=== PATIENT | female | born 1960 | race Caucasian/White ===

== ENCOUNTER 2018-08-03 19:01 | Observation (INO) | payer BC ==
[2018-08-03] MEDS ORDERED: SODIUM CHLORIDE 0.9% 1,000 ML IV ONE (20:09)
[2018-08-03] MEDS ORDERED: ACETAMINOPHEN TAB 500 MG TAB PO STA (20:09)
[2018-08-03 20:11] LABS: Basophils % (A) 1 %; Eosinophils # (A) 0.2 k/uL (0-0.7); Eosinophils % (A) 3 %; HCT 45.7 % (34.0-46.0); HGB 15.5 gm/dL (11.4-16.0); Lymphocytes # (A) 1.5 k/uL (1.0-4.8); Lymphocytes % (A) 30 %; MCH 31.1 pg (25.0-35.0); MCV 91.3 fL (80.0-100.0); Mean Platelet Volume 7.3; Monocytes # (A) 0.3 k/uL (0-1.0); Monocytes % (A) 6 %; Neutrophils # (A) 2.9 k/uL (1.3-7.7); Neutrophils % (A) 58 %; Platelet Count 235 k/uL (150-450); RDW 12.6 % (11.5-15.5)
[2018-08-03] MEDS ORDERED: SODIUM CHLORIDE 0.9% 1,000 ML IV SCH (20:15)
[2018-08-03 20:22] LABS: ALT 23 U/L (9-52); AST 26 U/L (14-36); Albumin 4.8 g/dL (3.5-5.0); Alkaline Phosphatase 65 U/L (38-126); Anion Gap 9 mmol/L; Blood Urea Nitrogen 19 mg/dL (7-17); Calcium 10.1 mg/dL (8.4-10.2); Carbon Dioxide 26 mmol/L (22-30); Chloride 105 mmol/L (98-107); Glucose 87 mg/dL (74-99); INR 0.9 (<1.2); Partial Thromboplastin Time 23.1 sec (22.0-30.0); Potassium 4.5 mmol/L (3.5-5.1); Prothrombin Time 9.7 sec (9.0-12.0); Sodium 140 mmol/L (137-145); Total Bilirubin 0.4 mg/dL (0.2-1.3)
[2018-08-03] MEDS ORDERED: LABETALOL SYRINGE 5 MG/ML IVP STA (20:27)
[2018-08-03 20:29] LABS: Creatine Kinase 62 U/L (30-135)
--- NOTE | 2018-08-03 20:30 | ED ---
Chest Pain HPI - General Source: patient, RN notes reviewed, old records reviewed Mode of arrival: ambulatory Limitations: no limitations <Niurka Malik - Last Filed: 08/03/18 22:33> <Gaby Mc - Last Filed: 08/05/18 21:20> - General Chief Complaint: Chest Pain Stated Complaint: CHEST PAIN, ABNORMAL EKG, DIZZINESS Time Seen by Provider: 08/03/18 19:53 - History of Present Illness Initial Comments: Patient is a 58-year-old female presents to ED with CC of chest pain for the past 2 days. Patient reports she woke up yesterday diaphoretic and feeling dizzy. She also has been complaining of increased headaches for the past few weeks. Patient states her headache seems to hurt all the way to her jaw. She states that today having a dull pressure. Joints were PCP who sent her here for EKG abnormalities and further evaluation. She is never seen a tie layer. She is a smoker. She rubs emergency department hypertensive 208/ 110. (Niurka Malik) - Related Data Home Medications Medication Instructions Recorded Confirmed Albuterol Inhaler [Ventolin Hfa 2 puff INHALATION RT-Q6H PRN 08/03/18 08/03/18 Inhaler] Buprenorphine [Buprenorphine 20 1 patch TRANSDERM Q4D 08/03/18 08/03/18 MCG/HR] Multivitamins, Thera [Multivitamin 1 tab PO DAILY 08/03/18 08/03/18 (formulary)] Pregabalin [Lyrica] 75 mg PO TID 08/03/18 08/03/18 Ranitidine HCl 150 mg PO TID 08/03/18 08/03/18 Previous Rx's Medication Instructions Recorded predniSONE [Deltasone] 40 mg PO DAILY 5 Days #10 tablet 08/03/18 Rosuvastatin Calcium [Crestor] 40 mg PO DAILY #90 tab 08/04/18 amLODIPine [Norvasc] 5 mg PO DAILY #10 tab 08/04/18 Allergies Allergy/AdvReac Type Severity Reaction Status Date / Time adhesive Allergy Rash/Hives Verified 08/03/18 20:28 Review of Systems ROS Other: All systems not noted in ROS Statement are negative. <Niurka Malik - Last Filed: 08/03/18 22:33> ROS Other: All systems not noted in ROS Statement are negative. <Gaby Mc P - Last Filed: 08/05/18 21:20> ROS Statement: Those systems with pertinent positive or pertinent negative responses have been documented in the HPI. EKG Findings - EKG Comments: EKG Findings:: EKG performed at 1947 shows normal sinus rhythm nonspecific ST T abnormalities. Abnormal EKG noted. Ventricular rate is 71 bpm. Intervals 118 seconds. Stressors and 72 ms. QT QTC 370/410 ms. <Niurka Malik - Last Filed: 08/03/18 22:33> Past Medical History Past Medical History: No Reported History History of Any Multi-Drug Resistant Organisms: None Reported Additional Past Surgical History / Comment(s): right total hip replacement. ORIF right femur. Past Psychological History: No Psychological Hx Reported Smoking Status: Current every day smoker Past Alcohol Use History: None Reported Past Drug Use History: None Reported <Niurka Malik - Last Filed: 08/03/18 22:33> General Exam Limitations: no limitations <Niurka Malik - Last Filed: 08/03/18 22:33> <Gaby Mc P - Last Filed: 08/05/18 21:20> - General Exam Comments Initial Comments: 50-year-old female. Alert and oriented. Patient appears in no significant distress. (Niurka Malik) Vital Signs 08/03/18 08/03/18 08/03/18 19:34 21:21 21:30 Temperature 98.4 F Pulse Rate 79 64 63 Respiratory 20 18 16 Rate Blood Pressure 205/91 191/105 175/105 O2 Sat by Pulse 99 Oximetry 08/03/18 08/03/18 08/03/18 22:00 22:05 22:30 Temperature Pulse Rate 56 L 58 L Respiratory 10 L 18 13 Rate Blood Pressure 192/104 144/100 151/100 O2 Sat by Pulse 99 98 Oximetry 08/03/18 08/03/18 08/04/18 23:00 23:30 00:00 Temperature Pulse Rate 61 56 L 58 L Respiratory 15 16 16 Rate Blood Pressure 158/87 151/86 157/89 O2 Sat by Pulse Oximetry 08/04/18 08/04/18 08/04/18 00:30 01:00 03:50 Temperature Pulse Rate 52 L 51 L 52 L Respiratory 16 12 17 Rate Blood Pressure 150/88 125/71 113/65 O2 Sat by Pulse Oximetry 08/04/18 08/04/18 08/04/18 07:00 08:00 09:00 Temperature Pulse Rate 56 L 53 L 57 L Respiratory 18 18 18 Rate Blood Pressure 117/75 112/77 101/65 O2 Sat by Pulse Oximetry Chest Pain MDM <Niurka Malik - Last Filed: 08/03/18 22:33> <Gaby Mc - Last Filed: 08/05/18 21:20> - MDM Is a 58-year-old female presents emergency department today with chief complaint of chest pain for the past 2 days as well as a headache. She is a smoker. Charts emergency department with elevated blood pressure of 208/110. Patient was given 20 mg of labetalol and Tylenol for headache. She reports that she still continues to have a dull chest pain. Patient CT of her brain was reviewed negative for any acute grand mal day. She is no neurological deficits. Patient EKG was reviewed. And shows no significant change at this time. An initial troponin is negative. I discussed this time with respect to the family heart disease, being a smoker and hypertensive urgency would like to give the Patient for further evaluation and cardiology consult. Patient agrees. Custody case with Dr. Mc who discussed the case with sounds physician. (Niurka Malik) I personally saw and examined the patient. I reviewed and agree with the mid- level provider findings including all diagnostic interpretations and treatment plans as written. Patient care was discussed with the admitting physician the patient was admitted for hypertensive urgency with chest pain. (Gaby Mc) Disposition Is patient prescribed a controlled substance at d/c from ED?: No Time of Disposition: 22:37 <Niurka Malik - Last Filed: 08/03/18 22:33> <Gaby Mc - Last Filed: 08/05/18 21:20> Clinical Impression: Chest pain, Hypertensive urgency Disposition: ADMITTED IP TO THIS HOSP Condition: Stable
[2018-08-03 20:42] LABS: Troponin I <0.012 ng/mL (0.000-0.034)
--- NOTE | 2018-08-03 21:13 | CT ---
EXAMINATION TYPE: CT brain wo con DATE OF EXAM: 08/03/2018 COMPARISON: None HISTORY: headache, abnormal ekg, dizziness CT DLP: 1115.4 mGycm Automated exposure control for dose reduction was used. FINDINGS: Ventricles and sulci appear normal. There is no mass effect nor midline shift. There is 8 mm hypodens e focus in the white matter insula right temporal lobe consistent with old lacunar infarct. The natalie rium is intact. IMPRESSION: NO ACUTE INTRACRANIAL ABNORMALITY.
--- NOTE | 2018-08-03 21:14 | XR ---
EXAMINATION TYPE: XR chest 2V DATE OF EXAM: 08/03/2018 COMPARISON: NONE HISTORY: Chest pain TECHNIQUE: Frontal and lateral views of the chest are obtained. FINDINGS: Heart and mediastinum are normal. Lungs are clear. Diaphragm is normal. Bony thorax appear s normal. There are chest leads. IMPRESSION: Normal chest.
[2018-08-03] MEDS ORDERED: ASPIRIN 81 MG PO STA (22:37)
[2018-08-03] MEDS ORDERED: NITROGLYCERIN SL TABS 0.4 MG TAB SUBLINGUAL PRN (22:37)
[2018-08-03] MEDS ORDERED: ALBUTEROL NEBULIZED 2.5 MG/3 ML INHALATION PRN (22:39)
[2018-08-03] MEDS ORDERED: BUPRENORPHINE TRANSDERM SCH (22:45)
[2018-08-03] MEDS ORDERED: PREGABALIN 75 MG CAP PO STA ×3 (23:18→23:21)
[2018-08-04 03:35] LABS: Creatine Kinase 51 U/L (30-135)
[2018-08-04] MEDS ORDERED: NALOXONE 0.4 MG/ML 1 ML VIAL IV PRN (03:37)
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
[2018-08-04 03:49] LABS: Troponin I <0.012 ng/mL (0.000-0.034)
[2018-08-04 04:00] LABS: Cholesterol 324 mg/dL (<200); HDL Cholesterol 85 mg/dL (40-60); LDL Cholesterol,Calculated 183 mg/dL (0-99); Triglycerides 281 mg/dL (<150)
[2018-08-04] MEDS ORDERED: ASPIRIN 325 MG TAB PO SCH (09:00)
[2018-08-04] MEDS ORDERED: amLODIPine 10 MG TAB PO SCH (09:00)
[2018-08-04] MEDS ORDERED: FAMOTIDINE 20 MG TAB PO SCH (09:00)
[2018-08-04] MEDS ORDERED: MELOXICAM 7.5 MG TAB PO SCH (09:00)
[2018-08-04] MEDS ORDERED: ENOXAPARIN 40 MG/0.4 ML SYRINGE SQ SCH (09:00)
[2018-08-04] MEDS ORDERED: LISINOPRIL 10 MG TAB PO SCH (09:00)
[2018-08-04 09:25] VITALS: RESP 18
[2018-08-04] MEDS: PREGABALIN 75 MG CAP PO SCH ×2 (09:44→12:18)
[2018-08-04] MEDS ORDERED: DOBUTamine DRIP for NUC MED 500 MG in DEXTROSE/WATER 1 250ML.BAG IV ONE (09:49)
--- NOTE | 2018-08-04 11:51 | P.PN ---
Subjective Patient is 58-year-old female with past medical history of chronic hip pain and osteoarthritis who presented to emergency department with 1 day of occipital headache and nausea and some dizziness. She was found to have blood pressure in 200 range. She denied any chest pain, shortness of breath abdominal pain. She does not carry any diagnosis of hypertension. She states that over the last week she was very very stressed out due to some issues at work and she did not sleep much for the last 3 days prior to the admission. Next and on admission she was treated with IV labetalol and started on oral antihypertensive medications. CT of the head was unremarkable chest x-ray was unremarkable EKG without any acute changes and troponin negative. Electrolytes and creatinine and creatinine normal. This morning her blood pressure is 138/83 and she states that all her symptoms have resolved no more headache or any nausea or any discomfort. She feeling at baseline and much improved. REVIEW OF SYSTEMS: CONSTITUTIONAL: No fever or chills HEENT: No changes in vision or voice CARDIOVASCULAR: no chest pain or abnormal heart beats, or any swelling in ankles or feet. RESPIRATORY: No wheezing or coughing. GASTROINTESTINAL: No abdominal pain, no nausea no vomiting no constipation or diarrhea GENITOURINARY: no any urinary urgency, frequency or burning, and there has been no blood in her urine. no flank pain. MUSCULOSKELETAL: She notes full range of motion of all her joints without pain or swelling. NEUROLOGICAL: , no headache. no vision changes, or fainting. No numbness or tingling. Objective - Vital Signs Vital signs: Vital Signs Temp 98.4 F 08/03/18 19:34 Pulse 57 L 08/04/18 09:00 Resp 18 08/04/18 09:00 BP 101/65 08/04/18 09:00 Pulse Ox 98 08/03/18 22:05 Intake & Output 08/03/18 08/04/18 08/04/18 18:59 06:59 18:59 Weight 54.431 kg - Exam Vital Signs: I have reviewed the vital signs. GENERAL: Well-nourished, Well-developed , no apparent distress, cooperative Eyes: PERRL, extraoculry movements intact, clear conjunctiva Head: : Atraumatic external nose and ears, oropharyngeal mucosa is moist without lesions or exudates Neck: Symmetric, trachea midline, No thyromegaly, no masses or neck vain pulsation, no neck rigidity CVS: +S1/S2, No murmurs or gallops. Peripheral pulses 2+ and equal in all extremities. RESP: Unlabored respiratory effort. Clear to auscultation bilaterally. Abdomen: Bowel sounds present in all 4 quadrants, Soft to palpation, Nontender/ Nondistended, No hepatosplenomegaly, no hernias or masses, no CVA tnderness Musculoskeletal: Extremities w/o deformity, No cyanosis or clubbing, no joint swelling Skin: Warm, Dry. No rashes or lesions Neuro: truer pinion and wheel II-XII grossly intact, motor strenght 5/5 i upper and lower extremities, no clonus, patellar DTRs 2+ and sympetrical Psych: Awake, Alert, & Oriented (AAO) x3 Appropriate mood and affect - Labs CBC & Chem 7: 08/03/18 19:52 08/03/18 19:52 Labs: Abnormal Lab Results - Last 24 Hours (Table) 08/03/18 08/03/18 Range/Units 19:52 19:52 BUN 19 H (7-17) mg/dL Triglycerides 281 H (<150) mg/dL Cholesterol 324 H (<200) mg/dL LDL Cholesterol, Calc 183 H (0-99) mg/dL HDL Cholesterol 85 H (40-60) mg/dL Assessment and Plan Plan: 1. Hypertensive urgency Patient might have underlying hypertension and then exacerbated by stress and insomnia She responded well to a blood pressure medications and I believe that goal for her blood pressure should be in the range of 140-160 for 24 hours and then she can slowly start lowering get over the next one week Given that her blood pressure now is in 120-140 range we discussed potential treatments. She is willing to accept prescription for amlodipine and to monitor her blood pressures at home she has a blood pressure monitor and if the blood pressure remains elevated above 140s to start her amlodipine. She is also we'll have a quick follow-up was discharged with her primary care physician Also cardiology evaluated the patient and recommended proceeding with echocardiogram and stress test and once we obtain the results of those will further discuss with patient about plans for discharge and further management.
[2018-08-04] MEDS ORDERED: MULTIVITAMINS, THERA 1 EACH TAB PO SCH (12:00)
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
[2018-08-04 13:51] VITALS: BP 164/98; PULSE 63; TEMP 98.7
--- NOTE | 2018-08-04 14:08 | ECHOF ---
Referral Reason:cp MEASUREMENTS -------- HEIGHT: 160.0 cm WEIGHT: 58.5 kg BP: 101/65 RVIDd: 2.4 cm (< 3.3) IVSd: 1.1 cm (0.6 - 1.1) LVIDd: 4.4 cm (3.9 - 5.3) LVPWd: 1.2 cm (0.6 - 1.1) IVSs: 1.4 cm LVIDs: 2.7 cm LVPWs: 1.4 cm Ao Diam: 3.4 cm (2.0 - 3.7) AV Cusp: 1.2 cm (1.5 - 2.6) LA Diam: 4.0 cm (2.7 - 3.8) MV EXCURSION: 13.883 mm (> 18.000) MV EF SLOPE: 80 mm/s (70 - 150) EPSS: 0.3 cm MV E Jacob: 0.80 m/s MV DecT: 214 ms MV A Jacob: 0.86 m/s MV E/A Ratio: 0.94 RAP: 5.00 mmHg RVSP: 12.42 mmHg FINDINGS -------- Sinus rhythm. This was a technically good study. LV size, wall thickness and systolic function are normal, with an EF greater than 55%. The left rhiannon tricular size is normal. The right ventricle is normal in size. The left atrial size is normal. The right atrial size is normal. The aortic valve is trileaflet, and appears structurally normal. No aortic stenosis or regurgitation. Mild mitral annular calcification present. Mild mitral regurgitation is present. Mild tricuspid regurgitation present. There is no evidence of pulmonary hypertension. The right v entricular systolic pressure, as measured by Doppler, is 12.42mmHg. There is no pulmonic regurgitation present. The aortic root size is normal. There is no pericardial effusion. CONCLUSIONS -------- 1. LV size, wall thickness and systolic function are normal, with an EF greater than 55%. 2. The left ventricular size is normal. 3. The right ventricle is normal in size. 4. The left atrial size is normal. 5. The right atrial size is normal. 6. The aortic valve is trileaflet, and appears structurally normal. No aortic stenosis or regurgitati on. 7. Mild mitral annular calcification present. 8. Mild mitral regurgitation is present. 9. Mild tricuspid regurgitation present. 10. There is no evidence of pulmonary hypertension. 11. The right ventricular systolic pressure, as measured by Doppler, is 12.42mmHg. 12. There is no pulmonic regurgitation present. 13. The aortic root size is normal. 14. There is no pericardial effusion. CONTINUOUS PILLOWCASE CUTTER: Bre Hill RDCS
[2018-08-04 14:52] LABS: T4, Free (Free Thyroxine) 1.07 ng/dL (0.78-2.19)
[2018-08-10 03:13] LABS: Metanephrine, Free 31 pg/mL (< OR = 57); Normetanephrine, Free 123 pg/mL (< OR = 148); Total, Free (MN + NMN) 154 pg/mL (< OR = 205)
== END 2018-08-04 13:51 | disposition home or self-care (01) ==
LOC: EC 19:01 → 1SOBS 22:21
PROVIDERS: ADMIT Internal Medicine; ATTEND Internal Medicine
DX: I16.0 Hypertensive urgency (principal); I10 Essential (primary) hypertension; R07.89 Other chest pain; R94.31 Abnormal electrocardiogram [ECG] [EKG]; R00.2 Palpitations; J44.9 Chronic obstructive pulmonary disease, unspecified; G89.21 Chronic pain due to trauma; G47.00 Insomnia, unspecified; K21.9 Gastro-esophageal reflux disease without esophagitis; E78.5 Hyperlipidemia, unspecified; F17.210 Nicotine dependence, cigarettes, uncomplicated; Z79.899 Other long term (current) drug therapy; Z91.048 Other nonmedicinal substance allergy status; Z96.641 Presence of right artificial hip joint; Z81.8 Family history of other mental and behavioral disorders; R61 Generalized hyperhidrosis; Z86.73 Personal history of transient ischemic attack (TIA), and cerebral infarction without residual deficits; M19.90 Unspecified osteoarthritis, unspecified site; M25.559 Pain in unspecified hip
CPT/HCPCS: 96361; 96374; 99285; 36415; 93005; 93306; 83835; 85379; 84439; 80061; 80053; 84443; 82550 ×2; 82553 ×2; 83735; 84484 ×2; 85025; 85610; 85730; 71046; 70450; G0378 ×2; J1250

== ENCOUNTER 2025-01-17 17:50 | Emergency (ER) | payer BC ==
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
[2025-01-17 19:58] VITALS: BP 146/81; PULSE 68; RESP 18; TEMP 98.6
== END 2025-01-17 19:42 | disposition home or self-care (01) ==
LOC: EC 17:50 → SUPCPDRO 17:50 → EC 19:42
DX: Z04.1 Encounter for examination and observation following transport accident (principal); F17.200 Nicotine dependence, unspecified, uncomplicated; Z91.09 Other allergy status, other than to drugs and biological substances
CPT/HCPCS: 73502; 99284

== ENCOUNTER 2025-01-23 15:08 | Emergency (ER) | payer OTHER, BC ==
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
[2025-01-23 15:48] VITALS: RESP 18; TEMP 97.8
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
[2025-01-23 18:35] VITALS: BP 176/82; PULSE 72
== END 2025-01-23 18:35 | disposition home or self-care (01) ==
LOC: EC 15:08
DX: S06.0XAA Concussion with loss of consciousness status unknown, initial encounter (principal); F17.200 Nicotine dependence, unspecified, uncomplicated; Z91.09 Other allergy status, other than to drugs and biological substances; X58.XXXA Exposure to other specified factors, initial encounter
CPT/HCPCS: 70450; 72125; 99284

== ENCOUNTER → 2025-01-24 | Outpatient (CLI) | payer OTHER ==
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
== END | disposition home or self-care (01) ==
LOC: RADXRMAIN 16:01
PROVIDERS: ATTEND Emergency Medicine
DX: S23.3XXD Sprain of ligaments of thoracic spine, subsequent encounter (principal); S33.5XXD Sprain of ligaments of lumbar spine, subsequent encounter; S90.31XD Contusion of right foot, subsequent encounter
CPT/HCPCS: 72072; 72100

== ENCOUNTER → 2025-02-08 | Outpatient (CLI) | payer OTHER ==
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
== END | disposition home or self-care (01) ==
LOC: RADCTMAIN 11:20
PROVIDERS: ATTEND Emergency Medicine
DX: S33.5XXD Sprain of ligaments of lumbar spine, subsequent encounter (principal); S23.3XXD Sprain of ligaments of thoracic spine, subsequent encounter; J44.9 Chronic obstructive pulmonary disease, unspecified; X58.XXXD Exposure to other specified factors, subsequent encounter
CPT/HCPCS: 71046; 72131

== ENCOUNTER 2025-02-15 15:50 | Emergency (ER) | payer BC, OTHER ==
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
[2025-02-15 16:46] LABS: Basophils # (A) 0.04 10*3/uL (0.00-0.10); Basophils % (A) 0.5 %; Eosinophils # (A) 0.08 10*3/uL (0.04-0.35); Eosinophils % (A) 1.1 %; HCT 38.0 % (37.2-46.3); HGB 13.4 g/dL (12.0-15.0); Lymphocytes # (A) 1.27 10*3/uL (0.90-5.00); Lymphocytes % (A) 17.1 %; MCH 32.8 pg (27.0-32.0); MCHC 35.3 g/dL (32.0-37.0); MCV 92.9 fL (80.0-97.0); Monocytes # (A) 0.55 10*3/uL (0.20-1.00); Monocytes % (A) 7.4 %; Neutrophils # (A) 5.46 10*3/uL (1.80-7.70); Neutrophils % (A) 73.6 %; Platelet Count 279 10*3/uL (140-440); RBC 4.09 10*6/uL (4.10-5.20); RDW 12.6 % (11.5-14.5); WBC 7.42 10*3/uL (4.50-10.00)
[2025-02-15 16:56] LABS: ALT 18 U/L (4-34); AST 28 U/L (14-36); African American GFR (CKD) >90 (>60 ml/min/1.73 sqM); Albumin 4.6 g/dL (3.5-5.0); Alkaline Phosphatase 72 U/L (38-126); Anion Gap 10 mmol/L; Blood Urea Nitrogen 24 mg/dL (7-17); Calcium 10.1 mg/dL (8.4-10.2); Carbon Dioxide 22 mmol/L (22-30); Chloride 105 mmol/L (98-107); Glucose 102 mg/dL (74-99); Non-African American GFR(CKD) 90 (>60 ml/min/1.73 sqM); Potassium 4.9 mmol/L (3.5-5.1); Sodium 137 mmol/L (137-145); Total Protein 7.4 g/dL (6.3-8.2)
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
[2025-02-15] MEDS: HYDROmorphone 0.5 MG/0.5 ML SYRINGE IVP STA (18:27)
[2025-02-15 18:41] VITALS: BP 148/91; PULSE 68; RESP 16; TEMP 98.7
[2025-02-15] MEDS: ACET/COD 300 MG/30 MG STARTER PACK TAB BTL PO STA (18:41)
== END 2025-02-15 18:44 | disposition home or self-care (01) ==
LOC: EC 15:50
DX: R07.89 Other chest pain (principal); F17.200 Nicotine dependence, unspecified, uncomplicated; Z91.09 Other allergy status, other than to drugs and biological substances; V89.2XXA Person injured in unspecified motor-vehicle accident, traffic, initial encounter
CPT/HCPCS: 36415; 80053; 85025; 71260; 74177; 99285; 96374; J1171; Q9967